=== PATIENT | female | born 1975 | race Two or more races ===

== ENCOUNTER 2017-03-21 10:49 | Emergency (ER) | payer SELFPAY ==
[2017-03-21 10:57] VITALS: BP 137/97
[2017-03-21] MEDS ORDERED: LIDOCAINE 2% VISCOUS SOLN 20 ML UDCUP PO ONE (11:17)
--- NOTE | 2017-03-21 11:20 | ER Document Report ---
HPI - HPI Pain Level: 4 Notes: Patient is a 41-year-old female no significant past medical history presents ED complaining of right upper dental pain to #3. Patient states that the pain began over the last couple days. Patient states that she is from [place] just got here a week ago. Patient is eating and drinking I difficulties. She is urinating normally having normal bowel movements. She has not noticed any obvious abscess or discharge. Patient states allergy to penicillins, but believes it is just a rash when she was a child. She has not had any angioedema or swelling with penicillins in the past. No other concerns or complaints at this time. Denies any headache, fever, neck pain, URI, sore throat, chest pain, palpitations, syncope, cough, shortness of breath, wheeze, dyspnea, abdominal pain, nausea/vomiting/diarrhea, urinary retention, dysuria, hematuria, or rash. - ROS Systems Reviewed and Negative: Yes All other systems reviewed and negative Past Medical History - Social History Smoking Status: Current Every Day Smoker Family History: Reviewed & Not Pertinent Vertical Provider Document - CONSTITUTIONAL Agree With Documented VS: Yes Notes: PHYSICAL EXAMINATION: GENERAL: Well-appearing, well-nourished and in no acute distress. A&Ox4. Answers questions appropriately. HEAD: Atraumatic, normocephalic. EYES: Pupils equal round and reactive to light, extraocular movements intact, sclera anicteric, conjunctiva are normal. ENT: EAC clear b/l. TM's intact b/l without erythema, fluid, or perforation. Nares patent and without discharge. oropharynx clear without exudates. No tonsilar hypertrophy or erythema. Moist mucous membranes. No sinus tenderness. Uvula midline. No palatine shift. No tongue protrusion. No respiratory compromise. Mouth: Poor dentition. + mild decay and mild gingivitis. No obvious abscess or discharge noted. No facial swelling. + tenderness to tooth #3. NECK: Normal range of motion, supple without lymphadenopathy. No rigidity/ meningismus. LUNGS: Breath sounds clear to auscultation bilaterally and equal. No wheezes rales or rhonchi. HEART: Regular rate and rhythm without murmurs, rubs, gallops. NEUROLOGICAL: Cranial nerves grossly intact. Normal speech, normal gait. Normal sensory, motor exams PSYCH: Normal mood, normal affect. SKIN: Warm, Dry, normal turgor, no rashes or lesions noted. - INFECTION CONTROL TRAVEL OUTSIDE OF THE [place] IN LAST 30 DAYS: No - RESPIRATORY O2 Sat by Pulse Oximetry: 99 Course - Re-evaluation Re-evalutation: 03/21/17 11:29 Patient is an afebrile, well-hydrated, 41-year-old female who presents the ED with toothache to #3, suspect nerve root etiology versus infection. Vitals are stable. PE is otherwise unremarkable. No obvious abscess was noted so no I&D is warranted at this time. No other labs or imaging warranted at this time based on H&P. I will send her home with a prescription for dispensed viscous lidocaine to use as needed as well as Keflex to take as directed due to allergy to penicillins. Cross-reactivity reviewed with the patient. Patient had a rash with penicillins as a child, but no angioedema issues. Patient also has no insurance so she cannot afford clindamycin at this time. Patient aware of the risks and benefits and is to take Benadryl and stop the medication and seek medical attention with any possible allergy while taking Keflex. Low suspicion for any meningitis, sepsis, peritonsillar/pharyngeal abscess, respiratory compromise, Clemente's, temporal arteritis, or other emergent systemic condition at this time. Patient is aware this condition can change from initial presentation and she needs to monitor symptoms closely. Conservative measures otherwise for symptoms. Call to schedule an appointment with a dentist for further evaluation and management. Recheck with your PCM this week as well. Return to the ED with any worsening/concerning symptoms otherwise as reviewed in discharge. Patient is in agreement. - Vital Signs Vital signs: Temp Pulse Resp BP Pulse Ox 98.7 F 94 18 137/97 H 99 03/21/17 10:56 03/21/17 10:56 03/21/17 10:56 03/21/17 10:56 03/21/17 10:56 Discharge - Discharge Clinical Impression: Toothache Condition: Stable Disposition: HOME, SELF-CARE Instructions: [facility], Cephalexin ([facility]), Toothache ([facility]) Additional Instructions: [place] and floss twice daily Maintain fluid intake Take antibiotics as directed Mouthwash, salt water gargles, peroxide rinse as needed Tylenol/ibuprofen as needed Recheck with PCM this week Call today/tomorrow and schedule an appointment with your dentist for further evaluation Return to the ED with any worsening symptoms and/or development of fever, headache, facial swelling, swelling of lips/tongue/throat, trouble swallowing, drooling, hoarseness, neck pain/stiffness, chest pain, palpitations, syncope, shortness of breath, trouble breathing, abdominal pain, n/v/d, numbness/tingling , or other worsening symptoms that are concerning to you. Prescriptions: Cephalexin Monohydrate [Keflex 500 mg Capsule] 500 mg PO TID #30 capsule Forms: Elevated Blood Pressure, Smoking Cessation Education Referrals: [facility] [Provider Group] - Follow up in 1 week
== END 2017-03-21 11:43 | disposition home or self-care (01) ==
LOC: ER 10:49
DX: K08.9 Disorder of teeth and supporting structures, unspecified (principal); F17.200 Nicotine dependence, unspecified, uncomplicated; Z88.0 Allergy status to penicillin
CPT/HCPCS: 99282; J3490